=== PATIENT | female | born 1985 | race African-American/Black ===

== ENCOUNTER 2021-07-21 17:09 | Emergency (ER) | payer OTHER ==
[~2021-07-21] VITALS: Ht 167.6 cm; Wt 80.0 kg
[2021-07-21] MEDS ORDERED: ACETAMINOPHEN 325MG TABLET PO ONE (17:45)
[2021-07-21 18:23] VITALS: BP 137/66
== END 2021-07-21 18:24 ==
LOC: ER 17:09
DX: M79.18 Myalgia, other site (principal); D64.9 Anemia, unspecified
CPT/HCPCS: 81025; 99283